=== PATIENT | female | born 1980 | race Hispanic/Latino ===

== ENCOUNTER 2016-08-30 21:48 | Emergency (ER) | payer OTHER ==
[~2016-08-30] VITALS: Ht 162.6 cm; Wt 54.0 kg
[2016-08-30] MEDS ORDERED: LIDODERM 5% P1 PATCH TD (23:46)
[2016-08-30] MEDS ORDERED: ZOFRAN ODT4 MG PO (23:46)
[2016-08-30] MEDS ORDERED: PERCOCET 5/31 TABLET PO (23:46)
[2016-08-31 00:09] VITALS: BP 93/73
== END 2016-08-31 00:11 | disposition home or self-care (01) ==
LOC: EME 21:48
DX: S32.10XA Unspecified fracture of sacrum, initial encounter for closed fracture (principal); W01.0XXA Fall on same level from slipping, tripping and stumbling without subsequent striking against object, initial encounter; R11.0 Nausea
CPT/HCPCS: 72100; 72220; 99281; 99284; J3010

== ENCOUNTER → 2017-04-18 | Outpatient (CLI) | payer OTHER ==
[~2017-04-18] MED LIST: LIDODERM 5% P1 PATCH TD; PERCOCET 5/31 TABLET PO; ZOFRAN ODT4 MG PO
== END | disposition home or self-care (01) ==
LOC: RAD 09:00
DX: Q60.0 Renal agenesis, unilateral (principal)
CPT/HCPCS: 76700